=== PATIENT | male | born 1970 | race Caucasian/White ===

== ENCOUNTER 2017-08-30 06:47 | Day surgery (SDC) | payer OTHER ==
[2017-08-30 07:31] VITALS: BMI 38.5
[2017-08-30 08:38] VITALS: TEMP 99
[2017-08-30 09:20] VITALS: BP 119/87; PULSE 63
--- NOTE | 2017-08-31 14:52 | PATH ---
Surgical Pathology Report Patient Name: DANYELLE BHATIA [facility]. Rec. #: [id number] /Age/Gender: 1970 (Age: 46) / M Account: [id number] Location: [facility]-ENDOSCOPY Taken: 08/30/2017 Received: 08/30/2017 Reported: 08/31/2017 Physicians: Alexandru Brown M.D. Specimen(s) Received A: BIOPSY CECAL POLYP B: BIOPSY RECTAL POLYP Clinical History Preoperative diagnosis: Screening, family history of colon cancer Postoperative diagnosis: Colon polyps, diverticulosis Final Diagnosis A. CECUM, POLYP, BIOPSY: TUBULAR ADENOMA. B. RECTUM, POLYP, BIOPSY: TUBULAR ADENOMA(S). HYPERPLASTIC POLYP. Electronically Signed Sherice Law M.D. Gross Description A. Received in formalin, labeled "biopsy cecal polyp" are 3 reyes, irregular portions of soft tissue ranging from 0.2-0.3 cm. in greatest dimension. The specimens are submitted in toto in one cassette. B. Received in formalin, labeled "biopsy rectal polyp" are 3 reyes, irregular portions of soft tissue averaging 0.2 cm. in greatest dimension. The specimens are submitted in toto in one cassette. 08/30/2017 saudi08/30/2017
== END 2017-08-30 09:35 | disposition home or self-care (01) ==
LOC: JASU-ENDO 06:47
PROVIDERS: ATTEND Internal Medicine Gastroenterology
PROC: 0DBP8ZX Excision of Rectum, Via Natural or Artificial Opening Endoscopic, Diagnostic (ICD-10-PCS; 2017-08-30)
PROC: 0DBH8ZX Excision of Cecum, Via Natural or Artificial Opening Endoscopic, Diagnostic (ICD-10-PCS; principal; 2017-08-30 08:00)
DX: Z12.11 Encounter for screening for malignant neoplasm of colon (principal); Z80.0 Family history of malignant neoplasm of digestive organs; K63.5 Polyp of colon; K57.30 Diverticulosis of large intestine without perforation or abscess without bleeding